=== PATIENT | female | born 2000 | race Caucasian/White ===

== ENCOUNTER 2022-01-08 19:44 | Emergency (ER) | payer SELFPAY ==
[~2022-01-08] VITALS: Ht 157.5 cm; Wt 132.0 kg
[~2022-01-08 19:44] MED LIST: TAM75CAP PO
[2022-01-08 20:21] VITALS: BP 123/83
[2022-01-08 21:00] VITALS: BP 120/77
[2022-01-08 21:40] LABS: HEMATOCRIT 38.6 % (37.0-47.0); HEMOGLOBIN 12.7 g/dl (12.0-16.0); IMMATURE GRANULOCYTES 0.2 % (0.0-5.0); MEAN CELL VOLUME 92.8 fL CALC (80.0-100.0); MEAN CORPUSCULAR HGB 30.5 pG CALC (26.0-32.0); MEAN CORPUSCULAR HGB CONC 32.9 g/dL CAL (32.0-36.0); NEUT# 7.31 thou/uL (2.00-7.15); RED BLOOD COUNT 4.16 mill/uL (4.20-5.60); RED CELL DISTRI WIDTH 13.8 % (11.5-15.5)
[2022-01-08 21:42] LABS: URINE BILIRUBIN - DIPSTICK NEGATIVE (NEGATIVE); URINE BLOOD DIPSTICK NEGATIVE (NEGATIVE); URINE COLOR YELLOW; URINE GLUCOSE - DIPSTICK NEGATIVE (NEGATIVE); URINE KETONE TRACE mg/dL (NEGATIVE); URINE LEUK ESTERASE NEGATIVE (NEGATIVE); URINE PROTEIN - DIPSTICK NEGATIVE (NEG-TRACE); URINE SPECIFIC GRAVITY >=1.030; URINE UROBILINOGEN - DIPSTICK 0.2 E.U./dL (0.2)
[2022-01-08 21:44] LABS: URINE NITRITE - DIPSTICK NEGATIVE (Negative)
[2022-01-08 21:49] LABS: ALBUMIN 4.4 g/dL (3.2-5.0); ALKALINE PHOSPHATASE 89 u/l (38-126); ANION GAP 12 (6-22 (CALC)); BILIRUBIN, TOTAL 0.2 mg/dL (0.0-1.4); BUN 17 mg/dL (7-17); BUN/CREATININE RATIO 19 (12-20 (CALC)); CARBON DIOXIDE 26 mmol/l (22-30); CHLORIDE 102 mmol/l (95-108); CPK 81 u/l (30-165); CREATININE 0.9 mg/dL (0.5-1.0); GFR > 60 ML/MIN (>=60 (CALC)); GFR FOR AFR.AMER. > 60 ML/MIN (>=60 (CALC)); POTASSIUM 3.6 mmol/l (3.5-5.1); SGOT/AST 25 u/l (14-36); SODIUM 136 mmol/l (137-146); TOTAL PROTEIN 7.4 g/dL (6.3-8.2)
[2022-01-08 22:06] LABS: BETA-HCG, QUANT(RESULT NUMBER) <2 mIU/mL
[2022-01-08 23:01] VITALS: BP 109/76
[2022-01-08] MEDS ORDERED: EC-NAPROXEN500 MG PO (23:01)
[2022-01-08] MEDS ORDERED: PREDNISONE20 MG PO (23:01)
[2022-01-08] MEDS ORDERED: ATIVAN1 M1 PO (23:01)
[2022-01-08 23:18] VITALS: BP 109/76
== END 2022-01-08 23:31 | disposition home or self-care (01) | DRG 552 ==
LOC: ED 19:44
PROVIDERS: Internal Medicine
DX: M54.31 Sciatica, right side (principal); F17.210 Nicotine dependence, cigarettes, uncomplicated; F17.290 Nicotine dependence, other tobacco product, uncomplicated
CPT/HCPCS: J2060